=== PATIENT | male | born 1990 | race Caucasian/White ===

== ENCOUNTER 2017-08-16 08:06 | Emergency (ER) | payer BC ==
[~2017-08-16] VITALS: Ht 170.2 cm; Wt 75.0 kg
[~2017-08-16 08:06] MED LIST: MEDR4PAK3 PO
[2017-08-16 08:09] VITALS: BP 111/80; PULSE 122; RESP 16; TEMP 100.4; O2SAT 95
--- NOTE | 2017-08-16 08:43 | PD ---
HPI Chief Complaint: Cold / Flu Symptoms Time Seen by Provider: 08:19 Travel History International Travel<30 days: No Contact w/Intl Traveler<30days: No Traveled to known affect area: No History of Present Illness HPI 26-year-old male arrives with fever cough and headache. The cough is productive of clear phlegm. The fever was as high as 102 last night. He did not take Tylenol and Motrin for concern of masking his symptoms at the time of his ER evaluation today. About a week ago he had 2 days of cough and was prescribed Tessalon Perles and amoxicillin by his primary care provider which seemed to help and then he had a 2 day interval of no symptoms and then symptoms as described above. He has a history of asthma and uses inhalers at home with good effect. He reports a severe cough last year which improved with prednisone and azithromycin. 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 HEAD: Atraumatic. Normocephalic. EYES: Pupils equal and round. No scleral icterus. No injection or drainage. ENT: No nasal bleeding or discharge. Mucous membranes pink and moist. Posterior oropharynx widely patent without exudate or asymmetry. NECK: Trachea midline. No JVD. CARDIOVASCULAR: Mild tachycardia. The rhythm is regular. RESPIRATORY: No significant dyspnea. Mild tachypnea. GASTROINTESTINAL: Abdomen soft, non-tender, nondistended. Hepatic and splenic margins not palpable. MUSCULOSKELETAL: Extremities without clubbing, cyanosis, or edema. No obvious deformities. NEUROLOGICAL: Awake and alert. No obvious cranial nerve deficits. Motor grossly within normal limits. Five out of 5 muscle strength in the arms and legs. Normal speech. PSYCHIATRIC: Appropriate mood and affect; insight and judgment normal. Data Data Last Documented VS Vital Signs Date Time Temp Pulse Resp B/P (MAP) Pulse Ox O2 Delivery O2 Flow Rate FiO2 08/16/17 08:09 100.4 122 16 111/80 (90) 95 VS reviewed MDM Medical Decision Making Medical Screen Exam Complete: Yes Emergency Medical Condition: Yes Medical Record Reviewed: Yes Differential Diagnosis Influenza, bronchitis, tonsillitis, bowel syndrome, asthma attack Narrative Course Presentation is compatible with influenza. Given the surgeon volume due to with an prevalence of the flu this year we will treat empirically and have the patient stated home today with plan for aggressive oral hydration at home instead of IV hydration and extensive workup here. Diagnosis Primary Impression: Influenza Med/Other Pt SpecificInfo: Prescription(s) given Scripts Guaifenesin-Codeine Liq (Guaifenesin-Codeine Liq) 100-10 Mg/5 Ml Soln 10 ML PO HS Y for COUGH for 7 Days, #1 BOTTLE 0 Refills Prov: Luis Baker MD 08/16/17 Oseltamivir (Tamiflu) 75 Mg Cap 75 MG PO BID for Mgmt Viral Infection for 5 Days, #10 CAP 0 Refills Prov: Luis Baker MD 08/16/17 Prednisone (Prednisone) 20 Mg Tab 40 MG PO DAILY for 4 Days, #8 TAB 0 Refills Take 40 mg (2 tablets) daily for 5 days Prov: Luis Baker MD 08/16/17 Disposition: 01 DISCHARGE HOME Condition: Stable Luis Baker MD Aug 16, 2017 08:43
[2017-08-16] MEDS ORDERED: OSEL75 PO (08:53)
[2017-08-16] MEDS ORDERED: GUAI100S5 PO (08:53)
[2017-08-16] MEDS ORDERED: PRED20 PO (08:53)
[2017-08-16] MEDS ORDERED: ACETAMINOPHEN 325 MG TAB PO ONE (09:00)
[2017-08-16] MEDS ORDERED: predniSONE 20 MG TAB PO ONE (09:00)
== END 2017-08-16 09:35 | disposition home or self-care (01) ==
LOC: NEPE 08:06
DX: J11.1 Influenza due to unidentified influenza virus with other respiratory manifestations (principal); J45.909 Unspecified asthma, uncomplicated; Z87.891 Personal history of nicotine dependence
CPT/HCPCS: 99284; J7512

== ENCOUNTER 2017-08-19 12:38 | Emergency (ER) | payer BC ==
[~2017-08-19 12:38] MED LIST changes: +GUAI100S5 PO; -MEDR4PAK3 PO; +OSEL75 PO; +PRED20 PO
[2017-08-19 12:41] VITALS: BP 113/79; PULSE 88; RESP 14; TEMP 98.6; O2SAT 98
[2017-08-19 13:33] LABS: BASOPHIL # 0.1 TH/MM3 (0-0.2); BASOPHIL % 0.4 % (0.0-2.0); EOSINOPHIL # 0.1 TH/MM3 (0-0.4); EOSINOPHIL % 0.6 % (0.0-4.0); HEMATOCRIT 43.3 % (39.0-51.0); HEMOGLOBIN 15.1 GM/DL (13.0-17.0); LYMPH % 15.4 % (9.0-44.0); LYMPHOCYTE # 3.2 TH/MM3 (1.0-4.8); MEAN CELL VOLUME 93.7 FL (80.0-100.0); MEAN CORPUSCULAR HEMOGLOBIN 32.6 PG (27.0-34.0); MEAN CORPUSCULAR HGB CONC 34.8 % (32.0-36.0); MEAN PLATELET VOLUME 8.5 FL (7.0-11.0); MONO % 7.2 % (0.0-8.0); MONOCYTE # 1.5 TH/MM3 (0-0.9); NEUT % 76.4 % (16.0-70.0); PLATELET COUNT 337 TH/MM3 (150-450); RED BLOOD COUNT 4.63 MIL/MM3 (4.50-5.90); RED CELL DISTRIBUTION WIDTH 12.5 % (11.6-17.2)
[2017-08-19 13:53] LABS: ALBUMIN 4.1 GM/DL (3.4-5.0); ALT (GPT) 37 U/L (12-78); AST (GOT) 9 U/L (15-37); BICARBONATE 27.6 MEQ/L (21.0-32.0); BLOOD UREA NITROGEN 18 MG/DL (7-18); CHLORIDE 108 MEQ/L (98-107); CREATININE 1.05 MG/DL (0.60-1.30); GLOMERULAR FILTRATION RATE 87 ML/MIN (>89); GLUCOSE,RANDOM 90 MG/DL (74-106); LIPASE 84 U/L (73-393); SODIUM (NA) 142 MEQ/L (136-145)
[2017-08-19 13:56] LABS: ALKALINE PHOSPHATASE 68 U/L (45-117); TOTAL BILIRUBIN ADULT 0.5 MG/DL (0.2-1.0)
--- NOTE | 2017-08-19 14:58 | PD ---
HPI Chief Complaint: GI Complaint Time Seen by Provider: 14:57 Travel History International Travel<30 days: No Contact w/Intl Traveler<30days: No Traveled to known affect area: No History of Present Illness HPI 26-year-old male presents to emergency department with five-day history of loose watery diarrhea and cramping. Patient was seen here on the diagnosed with influenza and given Tamiflu. He states his influenza symptoms have improved but he continues to have generalized lower abdominal cramping, with frequent watery stools. Patient states the stools are not large , but the urge to go is there with the cramping. Current pain is about 6 out of 10. She denies fever, chills, chest pain, nausea, vomiting, or heartburn. Patient states his appetite is not great. He has been eating. Patient denies urinary symptoms. He has no known drug allergies. PFSH Past Medical History Diminished Hearing: No Immunizations Current: Yes Social History Alcohol Use: Yes (SOCIAL) Tobacco Use: No (FORMER CIGAR SMOKER) Substance Use: No Allergies-Medications (Allergen,Severity, Reaction): Coded Allergies: No Known Allergies (Verified Adverse Reaction, Unknown, 08/19/17) Reported Meds & Prescriptions Reported Meds & Active Scripts Active Metronidazole 500 Mg Tab 500 Mg PO TID 7 Days Cipro (Ciprofloxacin HCl) 500 Mg Tab 500 Mg PO BID 7 Days Bentyl (Dicyclomine HCl) 10 Mg Cap 10 Mg PO QID 3 Days Guaifenesin-Codeine Liq 100-10 Mg/5 Ml Soln 10 Ml PO HS PRN 7 Days Tamiflu (Oseltamivir Phosphate) 75 Mg Cap 75 Mg PO BID 5 Days Prednisone 20 Mg Tab 40 Mg PO DAILY 4 Days Take 40 mg (2 tablets) daily for 5 days Review of Systems Except as stated in HPI: all other systems reviewed are Neg General / Constitutional: No: Fever, Chills Eyes: No: Visual changes HENT: No: Headaches Cardiovascular: No: Chest Pain or Discomfort Respiratory: No: Shortness of Breath Gastrointestinal: Positive: Diarrhea, Abdominal Pain, Loss of Appetite, No: Nausea, Vomiting, Hematemesis, Hematochezia, Constipation, Indigestion, Dysphagia Genitourinary: No: Urgency, Frequency, Dysuria Musculoskeletal: No: Pain Skin: No Rash Neurologic: No: Weakness Psychiatric: No: Depression Endocrine: No: Polydipsia Hematologic/Lymphatic: No: Easy Bruising Physical Exam Narrative GENERAL: Patient appears in no acute distress. SKIN: Warm and dry. Normal color. Normal turgor. HEAD: Atraumatic. Normocephalic. EYES: Pupils equal and round. No scleral icterus. No injection or drainage. ENT: No nasal bleeding or discharge. Mucous membranes pink and moist. Pharynx is clear. Airway is patent. NECK: Trachea midline. Supple nontender. CARDIOVASCULAR: Regular rate and rhythm. RESPIRATORY: No accessory muscle use. Clear to auscultation. Breath sounds equal bilaterally. GASTROINTESTINAL: Abdomen soft, mild to moderate diffuse tenderness in the lower abdominal region, nondistended. No specific point tenderness or rebound. Hepatic and splenic margins not palpable. No CVA tenderness MUSCULOSKELETAL: Extremities without clubbing, cyanosis, or edema. No obvious deformities. NEUROLOGICAL: Awake and alert. No obvious cranial nerve deficits. Motor grossly within normal limits. Five out of 5 muscle strength in the arms and legs. Normal speech. PSYCHIATRIC: Appropriate mood and affect; insight and judgment normal. Data Data Last Documented VS Vital Signs Date Time Temp Pulse Resp B/P (MAP) Pulse Ox O2 Delivery O2 Flow Rate FiO2 08/19/17 12:41 98.6 88 14 113/79 (90) 98 Orders Orders Complete Blood Count With Diff (08/19/17 12:48) Comprehensive Metabolic Panel (08/19/17 12:48) Urinalysis - C+S If Indicated (08/19/17 12:48) Lipase (08/19/17 12:48) Lipase (08/19/17 15:05) Lactic Acid (08/19/17 15:05) Ct Abd/Pel W Iv Contrast(Rout) (08/19/17 15:05) Iv Access Insert/Monitor (08/19/17 15:05) Ecg Monitoring (08/19/17 15:05) Oximetry (08/19/17 15:05) Ondansetron Inj (Zofran Inj) (08/19/17 15:15) Sodium Chlor 0.9% 1000 Ml Inj (Ns 1000 M (08/19/17 15:05) Sodium Chloride 0.9% Flush (Ns Flush) (08/19/17 15:15) Famotidine Inj (Pepcid Inj) (08/19/17 15:15) Dicyclomine (Bentyl) (08/19/17 15:15) Ketorolac Inj (Toradol Inj) (08/19/17 15:15) Potassium Chloride (Kcl) (08/19/17 15:30) Iohexol 350 Inj (Omnipaque 350 Inj) (08/19/17 15:34) Albuterol-Ipratropium Neb (Duoneb Neb) (08/19/17 17:00) Labs Laboratory Tests Test 08/19/17 12:55 08/19/17 15:15 White Blood Count 21.0 TH/MM3 Red Blood Count 4.63 MIL/MM3 Hemoglobin 15.1 GM/DL Hematocrit 43.3 % Mean Corpuscular Volume 93.7 FL Mean Corpuscular Hemoglobin 32.6 PG Mean Corpuscular Hemoglobin Concent 34.8 % Red Cell Distribution Width 12.5 % Platelet Count 337 TH/MM3 Mean Platelet Volume 8.5 FL Neutrophils (%) (Auto) 76.4 % Lymphocytes (%) (Auto) 15.4 % Monocytes (%) (Auto) 7.2 % Eosinophils (%) (Auto) 0.6 % Basophils (%) (Auto) 0.4 % Neutrophils # (Auto) 16.0 TH/MM3 Lymphocytes # (Auto) 3.2 TH/MM3 Monocytes # (Auto) 1.5 TH/MM3 Eosinophils # (Auto) 0.1 TH/MM3 Basophils # (Auto) 0.1 TH/MM3 CBC Comment DIFF FINAL Differential Comment Blood Urea Nitrogen 18 MG/DL Creatinine 1.05 MG/DL Random Glucose 90 MG/DL Total Protein 8.0 GM/DL Albumin 4.1 GM/DL Calcium Level 9.0 MG/DL Alkaline Phosphatase 68 U/L Aspartate Amino Transf (AST/SGOT) 9 U/L Alanine Aminotransferase (ALT/SGPT) 37 U/L Total Bilirubin 0.5 MG/DL Sodium Level 142 MEQ/L Potassium Level 3.3 MEQ/L Chloride Level 108 MEQ/L Carbon Dioxide Level 27.6 MEQ/L Anion Gap 6 MEQ/L Estimat Glomerular Filtration Rate 87 ML/MIN Lipase 84 U/L 79 U/L Lactic Acid Level 1.4 mmol/L [facility] Medical Decision Making Medical Screen Exam Complete: Yes Emergency Medical Condition: Yes Medical Record Reviewed: Yes Differential Diagnosis Gastroenteritis. Colitis. Influenza. Narrative Course Patient is medically stable at time of exam. CBC shows white count 21,000. CMP significant for potassium 3.3, chloride is 108, otherwise no significant findings lactic acid is 1.4. Lipase is 79. IV access is obtained and lipase was added. Patient is given 1000 mL normal saline bolus. Patient also given 4 mg Zofran IV , 30 mg Toradol IV, 10 mg Bentyl by mouth. CT of the abdomen with IV contrast is ordered. CT scan shows: Probable mild colitis otherwise negative Patient discussed with Dr. Winslow recommends covering the patient with Cipro and Flagyl for the next 7 days. Patient also given Bentyl 10 mg 4 times a day when necessary cramping. Patient is to rest, push fluids, avoid fatty foods, and return if symptoms do not improve over the next 72 hours. Diagnosis Primary Impression: Colitis, acute Referrals: Primary Care Physician Patient Instructions: Acute Diarrhea (ED), Colitis (ED), General Instructions Additional Instructions: CT scan shows: Probable mild colitis otherwise negative Patient discussed with Dr. Winslow recommends covering the patient with Cipro and Flagyl for the next 7 days. Patient also given Bentyl 10 mg 4 times a day when necessary cramping. Patient is to rest, push fluids, avoid fatty foods, and return if symptoms do not improve over the next 72 hours. Med/Other Pt SpecificInfo: Prescription(s) given Scripts Metronidazole (Metronidazole) 500 Mg Tab 500 MG PO TID for Infection for 7 Days, TAB 0 Refills Prov: Joel Winslow MD 08/19/17 Ciprofloxacin (Cipro) 500 Mg Tab 500 MG PO BID for Infection for 7 Days, #14 TAB 0 Refills Prov: Joel Winslow MD 08/19/17 Dicyclomine (Bentyl) 10 Mg Cap 10 MG PO QID for Bowel Management for 3 Days, CAP 0 Refills Prov: Joel Winslow MD 08/19/17 Disposition: 01 DISCHARGE HOME Condition: Stable Anthony Johansen Aug 19, 2017 14:58
[2017-08-19] MEDS ORDERED: SODIUM CHLOR 0.9% 1000 ML INJ 1,000 ML IV SCH (15:05)
[2017-08-19] MEDS ORDERED: ONDANSETRON HCL 4 MG/2 ML VIAL IVP ONE (15:15)
[2017-08-19] MEDS ORDERED: FAMOTIDINE 20 MG/2 ML VIAL IV PUSH ONE (15:15)
[2017-08-19] MEDS ORDERED: KETOROLAC TROMETHAMINE 30 MG/ML (IVP) VIAL IVP ONE (15:15)
[2017-08-19] MEDS ORDERED: DICYCLOMINE HCL 10 MG CAP PO ONE (15:15)
[2017-08-19] MEDS ORDERED: SODIUM CHLORIDE 0.9% FLUSH 10 ML FLUSH IV FLUSH PRN (15:15)
[2017-08-19] MEDS ORDERED: POTASSIUM CHLORIDE 20 MEQ CONTROLLED RELEASE TAB PO ONE (15:30)
[2017-08-19] MEDS ORDERED: IOHEXOL 350 MG/ML 10 ML VIAL (for RAD DIAG) IVCONTRAST ONE (15:34)
[2017-08-19] MEDS ORDERED: RESP: ALBUTEROL 2.5 MG/IPRATROPIUM 0.5 MG NEB (SCH) INH ONE (17:00)
--- NOTE | 2017-08-19 17:15 | RADRPT ---
EXAM DATE/TIME: 08/19/2017 15:29 [facility] COMPARISON: No previous studies available for comparison. INDICATIONS : Abdominal cramping, diarrhea, flu on tamiflu IV CONTRAST: cc Omnipaque 350 (iohexol) IV ORAL CONTRAST: No oral contrast ingested. RADIATION DOSE: 6.64 CTDIvol (mGy) MEDICAL HISTORY : None SURGICAL HISTORY : None. ENCOUNTER: Initial ACUITY: 3 days PAIN SCALE: 5/10 LOCATION: difuse abdominal TECHNIQUE: Volumetric scanning of the abdomen and pelvis was performed. Using automated exposure control and ad justment of the mA and/or kV according to patient size, radiation dose was kept as low as reasonably achievable to obtain optimal diagnostic quality images. DICOM format image data is available electro nically for review and comparison. FINDINGS: LOWER LUNGS: The visualized lower lungs are clear. LIVER: Homogeneous density without lesion. There is no dilation of the biliary tree. No calcified gallston es. SPLEEN: Normal size without lesion. PANCREAS: Within normal limits. KIDNEYS: Normal in size and shape. There is no mass, stone or hydronephrosis. ADRENAL GLANDS: Within normal limits. VASCULAR: There is no aortic aneurysm. BOWEL/MESENTERY: There is bowel wall thickening in the mid transverse colon into the descending colon suggesting mild colitis. . ABDOMINAL WALL: Within normal limits. RETROPERITONEUM: There is no lymphadenopathy. BLADDER: No wall thickening or mass. REPRODUCTIVE: Within normal limits. INGUINAL: There is no lymphadenopathy or hernia. MUSCULOSKELETAL: Within normal limits for patient age. CONCLUSION: Probable mild colitis otherwise negative Erloy Strong MD FACR on August 19, 2017 at 17:02 Board Certified Radiologist. This report was verified electronically.
[2017-08-19] MEDS ORDERED: CIPR-9 PO (17:22)
[2017-08-19] MEDS ORDERED: METR1TAB76 PO (17:22)
[2017-08-19] MEDS ORDERED: DICY10 PO (17:22)
== END 2017-08-19 18:18 | disposition home or self-care (01) ==
LOC: NEPC 12:38
DX: K52.9 Noninfective gastroenteritis and colitis, unspecified (principal); Z79.899 Other long term (current) drug therapy
CPT/HCPCS: 74177; 80053; 83605; 83690; 85025; 94664; 96361; 96374; 96375; 99285; J1885; J2405; J7030; Q9967

== ENCOUNTER 2017-08-27 19:31 | Observation (INO) | payer BC ==
[~2017-08-27 19:31] MED LIST changes: +CIPR-9 PO; +DICY10 PO; +METR1TAB76 PO
[2017-08-27 19:34] VITALS: BP 126/68; PULSE 99; RESP 20; TEMP 98.7; O2SAT 98
[2017-08-27] MEDS ORDERED: SODIUM CHLOR 0.9% 1000 ML INJ 1,000 ML IV SCH (19:49)
--- NOTE | 2017-08-27 19:59 | PD ---
HPI Chief Complaint: GI Complaint Time Seen by Provider: 19:45 Travel History International Travel<30 days: No Contact w/Intl Traveler<30days: No Traveled to known affect area: No History of Present Illness HPI 26-year-old male complains of abdominal pain with nausea and loose stool. Patient was seen in emergency room a week ago. Patient was diagnosed with colitis. Patient was given prescription for Cipro and Flagyl. Patient took the medication and stopped taking it about 2 days ago after he experienced nausea with the medication. Patient states that the abdominal pain got better when he took the medication and then get worse after he stopped the medications. Patient denies any headache. Patient denies any chest pain or shortness of breath. Patient states the pain in cramping pain localized to the mid to lower abdomen. Patient denies any pain radiation. Patient denies any blood or mucus in the stool. Patient denies any fever chills. Patient denies any back pain. PFSH Past Medical History Asthma: Yes Diminished Hearing: No Gastrointestinal Disorders: Yes (COLITIS) Respiratory: Yes Immunizations Current: Yes Social History Alcohol Use: Yes (SOCIAL) Tobacco Use: No (FORMER CIGAR SMOKER) Substance Use: No Allergies-Medications (Allergen,Severity, Reaction): Coded Allergies: No Known Allergies (Verified Adverse Reaction, Unknown, 08/27/17) Reported Meds & Prescriptions Reported Meds & Active Scripts Active Metronidazole 500 Mg Tab 500 Mg PO TID 7 Days Cipro (Ciprofloxacin HCl) 500 Mg Tab 500 Mg PO BID 7 Days Bentyl (Dicyclomine HCl) 10 Mg Cap 10 Mg PO QID 3 Days Guaifenesin-Codeine Liq 100-10 Mg/5 Ml Soln 10 Ml PO HS PRN 7 Days Tamiflu (Oseltamivir Phosphate) 75 Mg Cap 75 Mg PO BID 5 Days Prednisone 20 Mg Tab 40 Mg PO DAILY 4 Days Take 40 mg (2 tablets) daily for 5 days Review of Systems General / Constitutional: No: Fever Eyes: No: Visual changes HENT: No: Headaches Cardiovascular: No: Chest Pain or Discomfort Respiratory: No: Shortness of Breath Gastrointestinal: Positive: Nausea, Diarrhea, Abdominal Pain Genitourinary: No: Dysuria Musculoskeletal: No: Pain Skin: No Rash Neurologic: No: Weakness Psychiatric: No: Depression Endocrine: No: Polydipsia Hematologic/Lymphatic: No: Easy Bruising Physical Exam Narrative GENERAL: Well-nourished, well-developed patient. SKIN: Focused skin assessment warm/dry. HEAD: Normocephalic. EYES: No scleral icterus. No injection or drainage. NECK: Supple, trachea midline. No JVD or lymphadenopathy. CARDIOVASCULAR: Regular rate and rhythm without murmurs, gallops, or rubs. RESPIRATORY: Breath sounds equal bilaterally. No accessory muscle use. GASTROINTESTINAL: Abdomen soft, nondistended. Patient has mild to moderate diffuse tenderness mid abdomen and lower abdomen. No rebound tenderness. No mass. MUSCULOSKELETAL: No cyanosis, or edema. BACK: Nontender without obvious deformity. No CVA tenderness. Neurologic exam normal. Data Data Last Documented VS Vital Signs Date Time Temp Pulse Resp B/P (MAP) Pulse Ox O2 Delivery O2 Flow Rate FiO2 08/27/17 20:09 98 Room Air 08/27/17 19:34 98.7 99 20 Orders Orders Complete Blood Count With Diff (08/27/17 19:49) Comprehensive Metabolic Panel (08/27/17 19:49) Lipase (08/27/17 19:49) Urinalysis - C+S If Indicated (08/27/17 19:49) Ct Abd/Pel W Iv Contrast(Rout) (08/27/17 19:49) Iv Access Insert/Monitor (08/27/17 19:49) Ecg Monitoring (08/27/17 19:49) Oximetry (08/27/17 19:49) Sodium Chlor 0.9% 1000 Ml Inj (Ns 1000 M (08/27/17 19:49) Sodium Chloride 0.9% Flush (Ns Flush) (08/27/17 20:00) Morphine Inj (Morphine Inj) (08/27/17 20:00) Ondansetron Inj (Zofran Inj) (08/27/17 20:00) Iohexol 350 Inj (Omnipaque 350 Inj) (08/27/17 21:07) Labs Laboratory Tests Test 08/27/17 19:55 White Blood Count 23.1 TH/MM3 Red Blood Count 4.71 MIL/MM3 Hemoglobin 15.3 GM/DL Hematocrit 43.6 % Mean Corpuscular Volume 92.4 FL Mean Corpuscular Hemoglobin 32.3 PG Mean Corpuscular Hemoglobin Concent 35.0 % Red Cell Distribution Width 12.2 % Platelet Count 301 TH/MM3 Mean Platelet Volume 7.5 FL Neutrophils (%) (Auto) 81.2 % Lymphocytes (%) (Auto) 10.1 % Monocytes (%) (Auto) 7.7 % Eosinophils (%) (Auto) 0.7 % Basophils (%) (Auto) 0.3 % Neutrophils # (Auto) 18.8 TH/MM3 Lymphocytes # (Auto) 2.3 TH/MM3 Monocytes # (Auto) 1.8 TH/MM3 Eosinophils # (Auto) 0.2 TH/MM3 Basophils # (Auto) 0.1 TH/MM3 CBC Comment DIFF FINAL Differential Comment Blood Urea Nitrogen 17 MG/DL Creatinine 1.08 MG/DL Random Glucose 107 MG/DL Total Protein 7.6 GM/DL Albumin 4.3 GM/DL Calcium Level 9.4 MG/DL Alkaline Phosphatase 60 U/L Aspartate Amino Transf (AST/SGOT) 44 U/L Alanine Aminotransferase (ALT/SGPT) 254 U/L Total Bilirubin 0.8 MG/DL Sodium Level 136 MEQ/L Potassium Level 3.6 MEQ/L Chloride Level 101 MEQ/L Carbon Dioxide Level 27.3 MEQ/L Anion Gap 8 MEQ/L Estimat Glomerular Filtration Rate 84 ML/MIN Lipase 88 U/L MDM Medical Decision Making Medical Screen Exam Complete: Yes Emergency Medical Condition: Yes Interpretation(s) Last Impressions Abdomen/Pelvis CT 08/27/171948 Signed Impressions: Service Date/Time: Sunday, August 27, 2017 21:04 - CONCLUSION: Essentially unremarkable study. Pablo Shah MD 21:50 PM. CBC WBC 23.1. 81 neutrophil. AST 44. ALT 254. Differential Diagnosis Differential diagnosis including colitis, UTI, pyelonephritis, nephrolithiasis. Narrative Course 26-year-old male with mid to low abdominal pain, history of colitis. Patient was on Cipro and Flagyl and stopped taking them. Normal saline solution 1 25 cc an hour. Morphine 2 mg IV. Zofran 4 mg IV. Zosyn 3.375 g IV given. Diagnosis Primary Impression: Abdominal pain Qualified Codes: R10.30 - Lower abdominal pain, unspecified Admitting Information Admitting Physician Requests: Observation Twin Keys MD Aug 27, 2017 19:59
[2017-08-27] MEDS ORDERED: ONDANSETRON HCL 4 MG/2 ML VIAL IV PUSH ONE (20:00)
[2017-08-27] MEDS ORDERED: MORPHINE SULFATE 2 MG/ML INJ IV PUSH ONE (20:00)
[2017-08-27] MEDS ORDERED: SODIUM CHLORIDE 0.9% FLUSH 10 ML FLUSH IV FLUSH PRN ×2 (20:00→23:00)
[2017-08-27 20:09] VITALS: O2SAT 98
[2017-08-27 20:18] LABS: AUTOMATED NEUTROPHIL # 18.8 TH/MM3 (1.8-7.7); BASOPHIL # 0.1 TH/MM3 (0-0.2); BASOPHIL % 0.3 % (0.0-2.0); EOSINOPHIL # 0.2 TH/MM3 (0-0.4); EOSINOPHIL % 0.7 % (0.0-4.0); HEMATOCRIT 43.6 % (39.0-51.0); HEMOGLOBIN 15.3 GM/DL (13.0-17.0); LYMPH % 10.1 % (9.0-44.0); LYMPHOCYTE # 2.3 TH/MM3 (1.0-4.8); MEAN CELL VOLUME 92.4 FL (80.0-100.0); MEAN CORPUSCULAR HEMOGLOBIN 32.3 PG (27.0-34.0); MEAN PLATELET VOLUME 7.5 FL (7.0-11.0); MONO % 7.7 % (0.0-8.0); MONOCYTE # 1.8 TH/MM3 (0-0.9); NEUT % 81.2 % (16.0-70.0); PLATELET COUNT 301 TH/MM3 (150-450); RED BLOOD COUNT 4.71 MIL/MM3 (4.50-5.90); RED CELL DISTRIBUTION WIDTH 12.2 % (11.6-17.2); WHITE BLOOD COUNT 23.1 TH/MM3 (4.0-11.0)
[2017-08-27 20:43] LABS: ALBUMIN 4.3 GM/DL (3.4-5.0); AST (GOT) 44 U/L (15-37); BICARBONATE 27.3 MEQ/L (21.0-32.0); BLOOD UREA NITROGEN 17 MG/DL (7-18); CALCIUM 9.4 MG/DL (8.5-10.1); CHLORIDE 101 MEQ/L (98-107); CREATININE 1.08 MG/DL (0.60-1.30); GLOMERULAR FILTRATION RATE 84 ML/MIN (>89); GLUCOSE,RANDOM 107 MG/DL (74-106); SODIUM (NA) 136 MEQ/L (136-145)
[2017-08-27 20:47] LABS: ALKALINE PHOSPHATASE 60 U/L (45-117); ALT (GPT) 254 U/L (12-78); TOTAL BILIRUBIN ADULT 0.8 MG/DL (0.2-1.0); TOTAL PROTEIN 7.6 GM/DL (6.4-8.2)
[2017-08-27] MEDS ORDERED: IOHEXOL 350 MG/ML 10 ML VIAL (for RAD DIAG) IVCONTRAST ONE (21:07)
--- NOTE | 2017-08-27 21:37 | RADRPT ---
EXAM DATE/TIME: 08/27/2017 21:04 This report includes an Addendum and supersedes previous reports for this exam. [facility] COMPARISON: CT ABDOMEN & PELVIS W CONTRAST, August 19, 2017, 15:29. INDICATIONS : Low abdominal pain, nausea, and lack of appetite. IV CONTRAST: 81 cc Omnipaque 350 (iohexol) IV ORAL CONTRAST: No oral contrast ingested. RADIATION DOSE: 5.64 CTDIvol (mGy) MEDICAL HISTORY : Colitis SURGICAL HISTORY : None. ENCOUNTER: Initial ACUITY: 1 day PAIN SCALE: 6/10 LOCATION: abdomen TECHNIQUE: Volumetric scanning of the abdomen and pelvis was performed. Using automated exposure control and adjustment of the mA and/or kV according to patient size, radiation dose was kept as low as reasonably achievable to obtain optimal diagnostic quality images. DICOM format image data is av ailable electronically for review and comparison. FINDINGS: CT Abdomen: The liver, spleen, pancreas, kidneys, adrenals are unremarkable. There is no evidence for any appreciable pathological adenopathy, free fluid, or bowel obstruction. CT pelvis: There is no evidence for mass, abscess formation, or any significant adenopathy within the pelvis. The appendix appears intact without definite signs of appendicitis. There are a tiny lymph n odes within the mesentery right lower quadrant subcentimeter in size most likely benign. CONCLUSION: Essentially unremarkable study. Pablo Shah MD on August 27, 2017 at 21:31 Board Certified Radiologist. This report was verified electronically. ADDENDUM: After further review and discussions with Dr. Keys the colon is not distended therefore pathological process within the colon particularly submucosal process is difficult to exclude. Possibility of coli tis is not excluded based on this examination, however the colon appears decompressed and therefore n ot adequately characterized. Pablo Shah MD on August 27, 2017 at 21:57 Board Certified Radiologist. This report was verified electronically.
[2017-08-27] MEDS ORDERED: PIPERACIL-TAZO 3.375 GM PREMIX 50 ML IV ONE (22:15)
[2017-08-27 22:59] LABS: BILIRUBIN, URINE NEG (NEG); BLOOD, URINE NEG (NEG); GLUCOSE,URINE NEG (NEG); KETONE, URINE TRACE mg/dL (NEG); NITRITE,URINE NEG (NEG); PH, URINE 5.5 (5.0-8.5); URINE COLOR LIGHT-YELLOW (YELLW/STRAW); URINE LEUKOCYTE ESTERASE NEG (NEG)
[2017-08-27] MEDS ORDERED: NALOXONE HCL 0.4 MG/ML AMP IV PUSH PRN (23:00)
[2017-08-27] MEDS ORDERED: ACETAMINOPHEN 325 MG TAB PO PRN (23:00)
[2017-08-27] MEDS ORDERED: MORPHINE SULFATE 2 MG/ML INJ IV PUSH PRN (23:00)
[2017-08-27] MEDS ORDERED: ONDANSETRON HCL 4 MG/2 ML VIAL IVP PRN (23:00)
[2017-08-27] MEDS: SODIUM CHLOR 0.9% 1000 ML INJ 1,000 ML IV SCH (23:11)
[2017-08-27 23:19] VITALS: BP 129/58; PULSE 87; RESP 16; O2SAT 97
--- NOTE | 2017-08-27 23:37 | HHI.HP ---
[facility] Primary Care Physician Non-Staff Admission Diagnosis abdominal pain Diagnoses: Travel History International Travel<30 Days: No Contact w/Intl Traveler <30 Da: No Traveled to Known Affected Are: No History of Present Illness 26-year-old male with no significant past medical history presents to the emergency department for evaluation of abdominal pain and diarrhea. The patient was seen in the emergency department on 08/19/17 where he was diagnosed with acute colitis and discharged with Cipro and Flagyl. The patient reports that he took several days of his antibiotics (cannot remember how long) with relief of his symptoms. He states that he began to feel nauseated from the medication so he stopped taking it. He returns to the emergency department today complaining of diarrhea and a constant, crampy abdominal pain. He reports his diarrhea is brown and denies any blood in it. He denies nausea/ vomiting denies fever/chills. No chest pain or shortness of breath. Review of Systems Except as stated in HPI: all other systems reviewed are Neg Past Family Social History Past Medical History Asthma Past Surgical History None Reported Medications Reported Meds & Active Scripts Active Metronidazole 500 Mg Tab 500 Mg PO TID 7 Days Cipro (Ciprofloxacin HCl) 500 Mg Tab 500 Mg PO BID 7 Days Bentyl (Dicyclomine HCl) 10 Mg Cap 10 Mg PO QID 3 Days Allergies: Coded Allergies: No Known Allergies (Verified Adverse Reaction, Unknown, 08/27/17) Family History Father with diabetes mellitus Social History Occasional alcohol. Denies tobacco and illicit drugs. Physical Exam Vital Signs Vital Signs Date Time Temp Pulse Resp B/P (MAP) Pulse Ox O2 Delivery O2 Flow Rate FiO2 08/27/17 23:19 87 16 129/58 (81) 97 Room Air 08/27/17 20:09 98 Room Air 08/27/17 19:34 98.7 99 20 126/68 (87) 98 Room Air Physical Exam GENERAL: male sitting up in bed SKIN: No rashes, ecchymoses or lesions. Cool and dry. HEAD: Atraumatic. Normocephalic. No temporal or scalp tenderness. EYES: Pupils equal round and reactive. Extraocular motions intact. No scleral icterus. No injection or drainage. ENT: Nose without bleeding, purulent drainage or septal hematoma. Throat without erythema, tonsillar hypertrophy or exudate. Uvula midline. Airway patent. NECK: Trachea midline. No JVD or lymphadenopathy. Supple, nontender, no meningeal signs. CARDIOVASCULAR: Regular rate and rhythm without murmurs, gallops, or rubs. RESPIRATORY: Clear to auscultation. Breath sounds equal bilaterally. No wheezes , rales, or rhonchi. GASTROINTESTINAL: Abdomen soft, non-tender, nondistended. No hepato-splenomegaly , or palpable masses. No guarding. MUSCULOSKELETAL: Extremities without clubbing, cyanosis, or edema. No joint tenderness, effusion, or edema noted. No calf tenderness. NEUROLOGICAL: Awake and alert. Cranial nerves II through XII intact. Motor and sensory grossly within normal limits. Normal speech. Laboratory Laboratory Tests Test 08/27/17 19:55 08/27/17 22:30 White Blood Count 23.1 Red Blood Count 4.71 Hemoglobin 15.3 Hematocrit 43.6 Mean Corpuscular Volume 92.4 Mean Corpuscular Hemoglobin 32.3 Mean Corpuscular Hemoglobin Concent 35.0 Red Cell Distribution Width 12.2 Platelet Count 301 Mean Platelet Volume 7.5 Neutrophils (%) (Auto) 81.2 Lymphocytes (%) (Auto) 10.1 Monocytes (%) (Auto) 7.7 Eosinophils (%) (Auto) 0.7 Basophils (%) (Auto) 0.3 Neutrophils # (Auto) 18.8 Lymphocytes # (Auto) 2.3 Monocytes # (Auto) 1.8 Eosinophils # (Auto) 0.2 Basophils # (Auto) 0.1 CBC Comment DIFF FINAL Differential Comment Blood Urea Nitrogen 17 Creatinine 1.08 Random Glucose 107 Total Protein 7.6 Albumin 4.3 Calcium Level 9.4 Alkaline Phosphatase 60 Aspartate Amino Transf (AST/SGOT) 44 Alanine Aminotransferase (ALT/SGPT) 254 Total Bilirubin 0.8 Sodium Level 136 Potassium Level 3.6 Chloride Level 101 Carbon Dioxide Level 27.3 Anion Gap 8 Estimat Glomerular Filtration Rate 84 Lipase 88 Urine Color LIGHT-YELLOW Urine Turbidity CLEAR Urine pH 5.5 Urine Specific [place] GREATER THAN 1.050 Urine Protein NEG Urine Glucose (UA) NEG Urine Ketones TRACE Urine Occult Blood NEG Urine Nitrite NEG Urine Bilirubin NEG Urine Urobilinogen LESS THAN 2.0 Urine Leukocyte Esterase NEG Urine RBC 1 Urine WBC LESS THAN 1 Microscopic Urinalysis Comment CULT NOT INDICATED Result Diagram: 08/27/17195408/27/171954 Caprini VTE Risk Assessment Caprini VTE Risk Assessment: No/Low Risk (score <= 1) Caprini Risk Assessment Model Point Value = 1 Point Value = 2 Point Value = 3 Point Value = 5 Age 41-60 Minor surgery BMI > 25 kg/m2 Swollen legs Varicose veins or History of unexplained or recurrent spontaneous Oral contraceptives or hormone replacement Sepsis (< 1 month) Serious lung disease, including pneumonia (< 1 month) Abnormal pulmonary function Acute myocardial infarction Congestive heart failure (< 1 month) History of inflammatory bowel disease Medical patient at bed rest Age 61-74 Arthroscopic surgery Major open surgery (> 45 min) Laparoscopic surgery (> 45 min) Malignancy Confined to bed (> 72 hours) Immobilizing plaster cast Central venous access Age >= 75 History of VTE Family history of VTE Factor V Leiden Prothrombin [id number] Lupus anticoagulant Anticardiolipin antibodies Elevated serum homocysteine Heparin-induced thrombocytopenia Other congenital or acquired thrombophilia Stroke (< 1 month) Elective arthroplasty Hip, pelvis, or leg fracture Acute spinal cord injury (< 1 month) Prophylaxis Regimen Total Risk Factor Score Risk Level Prophylaxis Regimen 0-1 Low Early ambulation 2 Moderate Order ONE of the following: *Sequential Compression Device (SCD) *Heparin 5000 units SQ BID 3-4 Higher Order ONE of the following medications: *Heparin 5000 units SQ TID *Enoxaparin/Lovenox 40 mg SQ daily (WT < 150 kg, CrCl > 30 mL/min) *Enoxaparin/Lovenox 30 mg SQ daily (WT < 150 kg, CrCl > 10-29 mL/min) *Enoxaparin/Lovenox 30 mg SQ BID (WT < 150 kg, CrCl > 30 mL/min) AND/OR *Sequential Compression Device (SCD) 5 or more Highest Order ONE of the following medications: *Heparin 5000 units SQ TID (Preferred with Epidurals) *Enoxaparin/Lovenox 40 mg SQ daily (WT < 150 kg, CrCl > 30 mL/min) *Enoxaparin/Lovenox 30 mg SQ daily (WT < 150 kg, CrCl > 10-29 mL/min) *Enoxaparin/Lovenox 30 mg SQ BID (WT < 150 kg, CrCl > 30 mL/min) AND *Sequential Compression Device (SCD) Assessment and Plan Assessment and Plan Assessment/plan: 1. Abdominal pain/diarrhea/leukocytosis Patient initially diagnosed with colitis on 08/19, partially treated with several days of Cipro/Flagyl Repeat CT scan done today shows no acute findings Patient with persistent leukocytosis, WBCs today 23.1 Unclear etiology Zosyn Morphine for pain C. difficile pending Stool studies pending Gastroenterology consulted, appreciate recommendations 2. Transaminitis LFTs elevated from 08/19 Hepatitis profile pending Appreciate gastroenterology recommendations FEN Clear liquid diet NS at 100 cc/hr Electrolytes: monitor and replete prn Ambulation Patience Rivas MD Aug 27, 2017 23:37
[2017-08-28 00:14] VITALS: BP 116/57; PULSE 92; RESP 17; TEMP 98.2; O2SAT 97
[2017-08-28 03:29] VITALS: BP 118/60; PULSE 91; RESP 17; TEMP 98.3; O2SAT 95
[2017-08-28 05:16] LABS: AUTOMATED NEUTROPHIL # 13.6 TH/MM3 (1.8-7.7); BASOPHIL % 0.2 % (0.0-2.0); EOSINOPHIL # 0.3 TH/MM3 (0-0.4); EOSINOPHIL % 1.7 % (0.0-4.0); HEMOGLOBIN 14.6 GM/DL (13.0-17.0); LYMPH % 8.9 % (9.0-44.0); LYMPHOCYTE # 1.5 TH/MM3 (1.0-4.8); MEAN CELL VOLUME 92.8 FL (80.0-100.0); MEAN CORPUSCULAR HEMOGLOBIN 32.2 PG (27.0-34.0); MEAN CORPUSCULAR HGB CONC 34.7 % (32.0-36.0); MONOCYTE # 1.3 TH/MM3 (0-0.9); NEUT % 81.2 % (16.0-70.0); PLATELET COUNT 266 TH/MM3 (150-450); RED BLOOD COUNT 4.52 MIL/MM3 (4.50-5.90); RED CELL DISTRIBUTION WIDTH 12.6 % (11.6-17.2); WHITE BLOOD COUNT 16.7 TH/MM3 (4.0-11.0)
[2017-08-28 05:32] LABS: BICARBONATE 26.5 MEQ/L (21.0-32.0); CALCIUM 8.8 MG/DL (8.5-10.1); CREATININE 1.11 MG/DL (0.60-1.30)
[2017-08-28 08:15] VITALS: BP 117/65; PULSE 73; RESP 18; TEMP 99.3; O2SAT 96
[2017-08-28] MEDS ORDERED: SODIUM CHLORIDE 0.9% FLUSH 10 ML FLUSH IV FLUSH SCH (09:00)
[2017-08-28] MEDS ORDERED: metroNIDAZOLE 500 MG INJ 100 ML IV SCH (09:00)
[2017-08-28] MEDS: SODIUM CHLOR 0.9% 1000 ML INJ 1,000 ML IV SCH (09:53)
--- NOTE | 2017-08-28 10:40 | HHI.PR ---
Subjective Remarks Follow-up for colitis Patient positive for C. difficile colitis. He stated he feels a lot better today. Patient denies any nausea vomiting. Abdominal pain is improving. He stated that he took medication for about a week but then felt nauseous and he was doing better so he stopped all his medication. Patient stated that after that he noticed that his stools were becoming more loose. He is anxious to go home. Objective Vitals Vital Signs Date Time Temp Pulse Resp B/P (MAP) Pulse Ox O2 Delivery O2 Flow Rate FiO2 08/28/17 08:15 99.3 73 18 117/65 (82) 96 08/28/17 03:29 98.3 91 17 118/60 (79) 95 08/28/17 00:14 98.2 92 17 116/57 (76) 97 08/27/17 23:19 87 16 129/58 (81) 97 Room Air 08/27/17 20:09 98 Room Air 08/27/17 19:34 98.7 99 20 126/68 (87) 98 Room Air I/O 08/27/17 08/27/17 08/27/17 08/28/17 08/28/17 08/28/17 07:00 15:00 23:00 07:00 15:00 23:00 Intake Total 1000 ml 200 ml 1000 ml Balance 1000 ml 200 ml 1000 ml Intake Oral 200 ml IV Total 1000 ml 1000 ml Result Diagram: 08/28/17 0430 08/28/17 0430 Objective Remarks GENERAL:in NAD CARDIOVASCULAR: Regular rate and rhythm without murmurs, gallops, or rubs. RESPIRATORY: Breath sounds equal bilaterally. No accessory muscle use. GASTROINTESTINAL: Abdomen soft, non-tender, nondistended. MUSCULOSKELETAL: No cyanosis, or edema. BACK: Nontender without obvious deformity. No CVA tenderness. Medications and IVs Current Medications Sodium Chloride 1,000 ml @ 125 mls/hr Q8H IV Last administered on 08/27/17at 20: 07; Start 08/27/17 at 19:49; Stop 08/27/17 at 22:57; Status DC Sodium Chloride (NS Flush) 2 ml UNSCH PRN IV FLUSH FLUSH AFTER USING IV ACCESS ; Start 08/27/17 at 20:00; Stop 08/27/17 at 22:57; Status DC Morphine Sulfate (Morphine Inj) 2 mg ONCE ONCE IV PUSH Last administered on 20:08; Start 08/27/17 at 20:00; Stop 08/27/17 at 20:01; Status DC Ondansetron HCl (Zofran Inj) 4 mg ONCE ONCE IV PUSH Last administered on at 20:08; Start 08/27/17 at 20:00; Stop 08/27/17 at 20:01; Status DC Iohexol (Omnipaque 350 Inj) 81 ml STK-MED ONCE IVCONTRAST Last administered on 08/27/17at 21:07; Start 08/27/17 at 21:07; Stop 08/27/17 at 21:08; Status DC Piperacillin Sod/ Tazobactam Sod 50 ml @ 100 mls/hr ONCE ONCE IV Last administered on 08/27/17 22:34; Start 08/27/17 at 22:15; Stop 08/28/17 at 08:34; Status DC Sodium Chloride 1,000 ml @ 100 mls/hr Q10H IV Last administered on 08/28/17 09 :53; Start 08/27/17 at 22:54 Sodium Chloride (NS Flush) 2 ml UNSCH PRN IV FLUSH FLUSH AFTER USING IV ACCESS ; Start 08/27/17 at 23:00 Sodium Chloride (NS Flush) 2 ml BID IV FLUSH Last administered on 08/28/17 09: 53; Start 08/28/17 at 09:00 Acetaminophen (Tylenol) 650 mg Q4H PRN PO TEMP > 100.4 Last administered on 08/28at 03:03; Start 08/27/17 at 23:00 Ondansetron HCl (Zofran Inj) 4 mg Q6H PRN IVP NAUSEA OR VOMITING; Start at 23:00 Naloxone HCl (Narcan Inj) 0.4 mg UNSCH PRN IV PUSH SEE LABEL COMMENTS; Start at 23:00 Morphine Sulfate (Morphine Inj) 2 mg Q3H PRN IV PUSH pain >5; Start 08/27/17 at 23:00 Metronidazole 100 ml @ 100 mls/hr Q8H IV Last administered on 08/28/17 09:53; Start 08/28/17 at 09:00 A/P Assessment and Plan This is a 26-year-old male who was treated for colitis with Cipro and Flagyl and stopped his medication then symptoms recur C. difficile colitis Patient initially diagnosed with colitis on 08/19, partially treated with several days of Cipro/Flagyl Repeat CT scan done today shows no acute findings C. difficile positive. Will discontinue Zosyn. Start patient on Flagyl IV. Consider switching to oral Flagyl since patient clinically doing better and able to take oral intake pending GI consult. Transaminitis -LFTs elevated from 08/19 -Hepatitis profile pending -GI consulted. Discharge Planning Possible discharge home today pending GI consult. Ruthy Chaudhry MD Aug 28, 2017 10:40
[2017-08-28 12:45] VITALS: BP 116/70; PULSE 82; RESP 18; TEMP 98.9; O2SAT 95
[2017-08-28] MEDS ORDERED: METR-1 PO (14:42)
[2017-08-28] MEDS ORDERED: ZOFR4TAB PO (14:42)
--- NOTE | 2017-08-28 14:43 | HHI.DCPOC ---
Discharge Care Plan Diagnosis: (1) C. difficile colitis Goals to Promote Your Health * To prevent worsening of your condition and complications * To maintain your health at the optimal level Directions to Meet Your Goals Take your medications as prescribed Follow your dietary instruction Follow activity as directed Keep your appointments as scheduled Take your immunizations and boosters as scheduled If your symptoms worsen call your PCP, if no PCP go to Urgent Care Center or Emergency Room Smoking is Dangerous to Your Health. Avoid second hand smoke Call the 24-hour hour crisis hotline for domestic abuse at Ruthy Chaudhry MD Aug 28, 2017 14:43
--- NOTE | 2017-08-28 14:45 | HHI.DS ---
Discharge Summary Admission Date Aug 27, 2017 at 22:14 Discharge Date: Aug 28, 2017 Admitting Diagnosis abdominal pain (1) C. difficile colitis ICD Code: A04.72 - Enterocolitis due to Clostridium difficile, not specified as recurrent Diagnosis: Principal Procedures none Brief History - From Admission 26-year-old male with no significant past medical history presents to the emergency department for evaluation of abdominal pain and diarrhea. The patient was seen in the emergency department on 08/19/17 where he was diagnosed with acute colitis and discharged with Cipro and Flagyl. The patient reports that he took several days of his antibiotics (cannot remember how long) with relief of his symptoms. He states that he began to feel nauseated from the medication so he stopped taking it. He returns to the emergency department today complaining of diarrhea and a constant, crampy abdominal pain. He reports his diarrhea is brown and denies any blood in it. He denies nausea/ vomiting denies fever/chills. No chest pain or shortness of breath. CBC/BMP: 08/28/17 0430 08/28/17 0430 Significant Findings Laboratory Tests Test 08/27/17 19:55 08/27/17 22:30 08/28/17 02:50 08/28/17 04:30 White Blood Count 23.1 TH/MM3 (4.0-11.0) 16.7 TH/MM3 (4.0-11.0) Neutrophils (%) (Auto) 81.2 % (16.0-70.0) 81.2 % (16.0-70.0) Neutrophils # (Auto) 18.8 TH/MM3 (1.8-7.7) 13.6 TH/MM3 (1.8-7.7) Monocytes # (Auto) 1.8 TH/MM3 (0-0.9) 1.3 TH/MM3 (0-0.9) Random Glucose 107 MG/DL (74-106) 108 MG/DL (74-106) Aspartate Amino Transf (AST/SGOT) 44 U/L (15-37) Alanine Aminotransferase (ALT/SGPT) 254 U/L (12-78) Estimat Glomerular Filtration Rate 84 ML/MIN (>89) 81 ML/MIN (>89) Urine Specific [place] GREATER THAN 1.050 Urine Ketones TRACE mg/dL (NEG) Stool C. difficile Toxin (PCR) POSITIVE (NEGATIVE) Stl C. difficile Toxin Epiderm 027 PRESUMPTIVE POSITIVE Lymphocytes (%) (Auto) 8.9 % (9.0-44.0) Imaging Last Impressions Abdomen/Pelvis CT 08/27/171948 Signed Impressions: Service Date/Time: Sunday, August 27, 2017 21:04 - CONCLUSION: Essentially unremarkable study. Pablo Shah MD ADDENDUM: After further review and discussions with Dr. Keys the colon is not distended therefore pathological process within the colon particularly submucosal process is difficult to exclude. Possibility of colitis is not excluded based on this examination, however the colon appears decompressed and therefore not adequately characterized. Pablo Shah MD PE at Discharge GENERAL:in NAD CARDIOVASCULAR: Regular rate and rhythm without murmurs, gallops, or rubs. RESPIRATORY: Breath sounds equal bilaterally. No accessory muscle use. GASTROINTESTINAL: Abdomen soft, non-tender, nondistended. MUSCULOSKELETAL: No cyanosis, or edema. BACK: Nontender without obvious deformity. No CVA tenderness. Pt update on day of discharge Follow-up for C. difficile colitis Patient denied abdominal pain. He stated that he never had nausea vomiting. Patient stated he came in more due to his diarrhea. Patient stated that he took Cipro and Flagyl for about a week but stopped medication because he felt nauseous and his symptoms resolved and he no longer have diarrhea. Patient stated afterwards he slowly developed loose stools. He fevers or chills. Patient feels like he is a lot better today. Tolerating diet. Hospital Course This is a 26-year-old male who was diagnosed with colitis about 2 weeks ago and was sent home on Cipro and Flagyl. He was doing well with the medication but stopped the medication about one week later secondary to feeling nauseous and he felt the symptoms resolved did not think he needed the medication anymore. Later on patient stated that stools became more loose so he came to the hospital. Patient denied any nausea or vomiting. He also denies any double pain. During his hospital course he recover quickly. He was admitted he did have elevated white count that improved quickly with IV fluids. Studies were taken and patient was found to have C. difficile colitis. He was put on Flagyl. Later since he was able to tolerate oral intake he was discharged home with Flagyl and also given Zofran in case he develop any nausea. Was told that if he develop any new onset symptoms or symptoms worsen to return to the emergency department or call 911. At the time of discharge patient was asymptomatic and clinically improving. Pt Condition on Discharge: Good Discharge Disposition: Discharge Home Discharge Time: > 30 minutes Discharge Instructions DIET: Follow Instructions for: As Tolerated, No Restrictions Activities you can perform: Regular-No Restrictions Follow up Referrals: PCP Follow-up - 3-5 Days New Medications: Metronidazole (Flagyl) 500 Mg Tab 500 MG PO TID for Infection, #30 TAB 0 Refills Ondansetron (Zofran) 4 Mg Tab 4 MG PO Q6HR PRN for NAUSEA OR VOMITING, #20 TAB 0 Refills Discontinued Medications: Ciprofloxacin (Cipro) 500 Mg Tab 500 MG PO BID for Infection for 7 Days, #14 TAB 0 Refills Dicyclomine (Bentyl) 10 Mg Cap 10 MG PO QID for Bowel Management for 3 Days, CAP 0 Refills Metronidazole (Metronidazole) 500 Mg Tab 500 MG PO TID for Infection for 7 Days, TAB 0 Refills Ruthy Chaudhry MD Aug 28, 2017 14:45
[2017-08-29 13:42] LABS: HEPATITIS A AB IGM NEGATIVE (NEGATIVE); HEPATITIS B CORE AB IGM NEGATIVE (NEGATIVE); HEPATITIS B SURFACE ANTIGEN NEGATIVE (NEGATIVE); HEPATITIS C AB IgG NEGATIVE (NEGATIVE)
== END 2017-08-28 16:50 | disposition home or self-care (01) ==
LOC: NEPD 19:31 → NEDA 22:14 → NEPGCP 23:55
PROVIDERS: ADMIT Family Medicine; ATTEND Family Medicine
DX: A04.72 Enterocolitis due to Clostridium difficile, not specified as recurrent (principal); R74.0 Nonspecific elevation of levels of transaminase and lactic acid dehydrogenase [LDH]; J45.909 Unspecified asthma, uncomplicated; Z87.891 Personal history of nicotine dependence
CPT/HCPCS: 74177; 80048; 80053; 80074; 81001; 83690; 85025; 87205; 87328; 87329; 87493; 87506; 96361; 96365; 96366; 96375; 99285; G0378; J2270; J2405; J2543; J7030; Q9967

== ENCOUNTER 2017-09-12 16:26 | Emergency (ER) | payer BC ==
[~2017-09-12 16:26] MED LIST changes: -CIPR-9 PO; -DICY10 PO; -GUAI100S5 PO; +METR-1 PO; -METR1TAB76 PO; -OSEL75 PO; -PRED20 PO; +ZOFR4TAB PO
[2017-09-12 16:30] VITALS: BP 154/64; PULSE 97; RESP 16; TEMP 98.4; O2SAT 99
[2017-09-12] MEDS ORDERED: VANCOMYCIN 500 MG VIAL (FOR ORAL USE ONLY) PO ONE (17:15)
--- NOTE | 2017-09-12 17:20 | PD ---
HPI Chief Complaint: Abdominal Pain Time Seen by Provider: 17:00 Travel History International Travel<30 days: No Contact w/Intl Traveler<30days: No Traveled to known affect area: No History of Present Illness HPI 26-year-old male complains of low abdominal pain, diarrhea, bloody stool. Patient was seen in the emergency room August 19 with diagnosis of colitis. Patient was discharged home with prescription for Cipro and Flagyl. Patient took the medications for several days and stopped taking them. Patient returned to the emergency room and was admitted on August 27 and discharged on August 28. Patient was given prescription for 3 weeks of Flagyl 500 mg 3 times a day. Patient still on Flagyl. Patient started having low abdominal cramping with diarrhea this morning. Patient states that he had blood in the stool. Patient denies any fever chills. Patient denies any back pain. Patient denies any chest pain or shortness of breath. PFSH Past Medical History Asthma: No Blood Disorders: No Anxiety: No Depression: No Heart Rhythm Problems: No Cancer: No Cardiovascular Problems: No High Cholesterol: No Chemotherapy: No Chest Pain: No Congestive Heart Failure: No COPD: No Diabetes: No Diminished Hearing: No Endocrine: No Gastrointestinal Disorders: Yes (COLITIS) Genitourinary: No Immune Disorder: No Musculoskeletal: No Neurologic: No Psychiatric: No Reproductive: No Respiratory: No Immunizations Current: Yes Radiation Therapy: No Sleep Apnea: No Thyroid Disease: No Social History Alcohol Use: Yes (SOCIAL) Tobacco Use: No (FORMER CIGAR SMOKER) Substance Use: No Allergies-Medications (Allergen,Severity, Reaction): Coded Allergies: No Known Allergies (Verified Adverse Reaction, Unknown, 09/12/17) Reported Meds & Prescriptions Reported Meds & Active Scripts Active Zofran (Ondansetron HCl) 4 Mg Tab 4 Mg PO Q6HR PRN Flagyl (Metronidazole) 500 Mg Tab 500 Mg PO TID Review of Systems General / Constitutional: No: Fever Eyes: No: Visual changes HENT: No: Headaches Cardiovascular: No: Chest Pain or Discomfort Respiratory: No: Shortness of Breath Gastrointestinal: Positive: Diarrhea, Abdominal Pain, Hematochezia Genitourinary: No: Dysuria Musculoskeletal: No: Pain Skin: No Rash Neurologic: No: Weakness Psychiatric: No: Depression Endocrine: No: Polydipsia Hematologic/Lymphatic: No: Easy Bruising Physical Exam Narrative GENERAL: Well-nourished, well-developed patient. SKIN: Focused skin assessment warm/dry. HEAD: Normocephalic. EYES: No scleral icterus. No injection or drainage. NECK: Supple, trachea midline. No JVD or lymphadenopathy. CARDIOVASCULAR: Regular rate and rhythm without murmurs, gallops, or rubs. RESPIRATORY: Breath sounds equal bilaterally. No accessory muscle use. GASTROINTESTINAL: Abdomen soft, nondistended. Patient has mild tenderness in palpation lower abdomen. No rebound tenderness. No mass. MUSCULOSKELETAL: No cyanosis, or edema. BACK: Nontender without obvious deformity. No CVA tenderness. Data Data Last Documented VS Vital Signs Date Time Temp Pulse Resp B/P (MAP) Pulse Ox O2 Delivery O2 Flow Rate FiO2 09/12/17 16:30 98.4 97 16 154/64 (94) 99 Orders Orders Complete Blood Count With Diff (09/12/17 16:33) Basic Metabolic Panel (Bmp) (09/12/17 16:33) Vancomycin For Oral Use Only (Vancomycin (09/12/17 17:15) Labs Laboratory Tests Test 09/12/17 16:40 White Blood Count 18.8 TH/MM3 Red Blood Count 4.93 MIL/MM3 Hemoglobin 16.2 GM/DL Hematocrit 46.4 % Mean Corpuscular Volume 94.0 FL Mean Corpuscular Hemoglobin 32.9 PG Mean Corpuscular Hemoglobin Concent 35.0 % Red Cell Distribution Width 13.1 % Platelet Count 301 TH/MM3 Mean Platelet Volume 7.9 FL Neutrophils (%) (Auto) 78.1 % Lymphocytes (%) (Auto) 13.0 % Monocytes (%) (Auto) 6.8 % Eosinophils (%) (Auto) 1.9 % Basophils (%) (Auto) 0.2 % Neutrophils # (Auto) 14.7 TH/MM3 Lymphocytes # (Auto) 2.4 TH/MM3 Monocytes # (Auto) 1.3 TH/MM3 Eosinophils # (Auto) 0.4 TH/MM3 Basophils # (Auto) 0.0 TH/MM3 CBC Comment AUTO DIFF Differential Total Cells Counted 100 Neutrophils % (Manual) 74 % Band Neutrophils % 3 % Lymphocytes % 11 % Monocytes % 7 % Eosinophils % 5 % Neutrophils # (Manual) 14.5 TH/MM3 Differential Comment FINAL DIFF MANUAL Atypical Lymphocytes % Platelet Estimate NORMAL Platelet Morphology Comment NORMAL Blood Urea Nitrogen 13 MG/DL Creatinine 0.86 MG/DL Random Glucose 94 MG/DL Calcium Level 9.2 MG/DL Sodium Level 139 MEQ/L Potassium Level 4.0 MEQ/L Chloride Level 104 MEQ/L Carbon Dioxide Level 26.9 MEQ/L Anion Gap 8 MEQ/L Estimat Glomerular Filtration Rate 109 ML/MIN MDM Medical Decision Making Medical Screen Exam Complete: Yes Emergency Medical Condition: Yes Interpretation(s) CBC WBC 18.8. 78 neutrophil. BMP within normal limits. Differential Diagnosis Differential diagnoses include colitis, AV malformation, hemorrhoidal bleed. Narrative Course 26-year-old male with abdominal pain, diarrhea, bloody stool. History of C. difficile colitis and on Flagyl. Vancomycin 125 mg p.o. given. Diagnosis Primary Impression: C. difficile colitis Patient Instructions: General Instructions Additional Instructions: Stop Flagyl. Vancomycin as directed. Follow-up with personal physician. Return if persistent problem or worse. Med/Other Pt SpecificInfo: Prescription(s) given, Existing Med Changed Scripts Vancomycin (Vancocin) 125 Mg Cap 125 MG PO QID for Infection, #84 CAP 0 Refills Prov: Twin Keys MD 09/12/17 Tramadol (Ultram) 50 Mg Tab 50 MG PO Q6H Y for PAIN, #20 TAB 0 Refills Prov: Twin Keys MD 09/12/17 Disposition: 01 DISCHARGE HOME Twin Keys MD Sep 12, 2017 17:20
[2017-09-12 17:25] LABS: AUTOMATED NEUTROPHIL # 14.7 TH/MM3 (1.8-7.7); BASOPHIL % 0.2 % (0.0-2.0); EOSINOPHIL # 0.4 TH/MM3 (0-0.4); EOSINOPHIL % 1.9 % (0.0-4.0); HEMATOCRIT 46.4 % (39.0-51.0); HEMOGLOBIN 16.2 GM/DL (13.0-17.0); LYMPHOCYTE # 2.4 TH/MM3 (1.0-4.8); MEAN CORPUSCULAR HEMOGLOBIN 32.9 PG (27.0-34.0); MEAN PLATELET VOLUME 7.9 FL (7.0-11.0); MONO % 6.8 % (0.0-8.0); MONOCYTE # 1.3 TH/MM3 (0-0.9); NEUT % 78.1 % (16.0-70.0); PLATELET COUNT 301 TH/MM3 (150-450); RED BLOOD COUNT 4.93 MIL/MM3 (4.50-5.90); RED CELL DISTRIBUTION WIDTH 13.1 % (11.6-17.2); WHITE BLOOD COUNT 18.8 TH/MM3 (4.0-11.0)
[2017-09-12 17:29] LABS: BICARBONATE 26.9 MEQ/L (21.0-32.0); CALCIUM 9.2 MG/DL (8.5-10.1); CREATININE 0.86 MG/DL (0.60-1.30)
[2017-09-12 18:14] LABS: BANDS 3 % (0-6); LYMPHOCYTES 11 % (9-44); MONOCYTES 7 % (0-8); NEUTROPHIL # MANUAL DIFF 14.5 TH/MM3 (1.8-7.7); POLYS (SEG NEUTROPHILS) 74 % (16-70)
[2017-09-12] MEDS ORDERED: VANC1CAP6 PO (18:26)
[2017-09-12] MEDS ORDERED: TRAM50 PO (18:26)
== END 2017-09-12 18:48 | disposition home or self-care (01) ==
LOC: NEPD 16:26
DX: A04.71 Enterocolitis due to Clostridium difficile, recurrent (principal); Z87.891 Personal history of nicotine dependence; Z79.2 Long term (current) use of antibiotics
CPT/HCPCS: 80048; 85007; 85027; 99283